=== PATIENT | female | born 1985 | race African-American/Black ===

== ENCOUNTER 2017-07-12 09:20 | Emergency (ER) | payer MEDICAID ==
[~2017-07-12] VITALS: Ht 165.1 cm; Wt 74.4 kg
[~2017-07-12 09:20] MED LIST: GABA-339; HYDR-2616; NAPR500T31
[2017-07-12 09:23] VITALS: BP 155/106
[2017-07-12] MEDS ORDERED: diphenhdrAMINE HCL 50 MG/1 ML VL IM ONE (10:15)
== END 2017-07-12 10:55 | disposition home or self-care (01) ==
LOC: ER 09:20
DX: O23.41 Unspecified infection of urinary tract in pregnancy, first trimester (principal)
CPT/HCPCS: 96372; 99283; J1200

== ENCOUNTER → 2020-09-02 | Outpatient (CLI) | payer SELFPAY ==
[2020-09-02 11:20] LABS: Basophils # (auto) 0 10 ^3/uL (0-0.2); Basophils % (auto) 0.5 % (0.0-2.0); Eosinophils # (auto) 0 10 ^3/uL (0-0.8); Eosinophils % (auto) 0.7 % (0.0-7.0); Hematocrit 38.5 % (36.0-46.0); Hemoglobin 13.2 g/dL (12.2-16.2); Lymphocytes # (auto) 1.7 10 ^3/uL (0.4-5.4); Lymphocytes % (auto) 26.3 % (10.0-50.0); Mean Corpuscular Hemoglobin 33.8 pg (28.0-32.0); Mean Corpuscular Hgb Conc. 34.4 g/dL (32.0-36.0); Mean Corpuscular Volume 98.2 fL (80.0-100.0); Monocytes # (auto) 0.4 10 ^3/uL (0-1.3); Monocytes % (auto) 5.5 % (0.0-12.0); Neutrophils # (auto) 4.4 10 ^3/uL (1.6-8.6); Platelet Count (auto) 250 10^3/uL (140-450); Red Blood Cells 3.92 10^6/uL (4.0-5.20); Red Cell Distribution Width 12.9 % (11.8-14.3); White Blood Cell 6.5 10^3/uL (4.4-10.8)
[2020-09-02 11:33] LABS: Urine Bacteria NONE SEEN /hpf (None Seen); Urine Blood Negative /uL (Negative); Urine Mucus FEW (None Seen); Urine Specific Gravity 1.021 (1.001-1.035); Urine WBC <1 /hpf (0 - 5)
[2020-09-02 11:56] LABS: INR 1.02 (0.9-1.15); Partial Thromboplastin Time 25.5 sec (23.0-31.2)
[2020-09-02 13:10] LABS: Albumin 3.8 g/dL (3.4-5.0); Calcium 8.6 mg/dL (8.5-10.1); Potassium 3.8 mmol/L (3.5-5.1)
[2020-09-02 13:14] LABS: BUN/Creatinine Ratio 13.9; Bilirubin, Total 0.6 mg/dL (0.2-1.0); Total Protein 7.6 g/dL (6.4-8.2)
== END | disposition home or self-care (01) ==
LOC: LAB 11:03
PROVIDERS: ATTEND Internal Medicine
DX: Z01.812 Encounter for preprocedural laboratory examination (principal)
CPT/HCPCS: 36415; 80053; 81001; 84702; 85025; 85610; 85730; 86703

== ENCOUNTER → 2020-09-24 | Outpatient (CLI) | payer SELFPAY | END | disposition home or self-care (01) | LOC: LAB 16:37 | PROVIDERS: ATTEND Internal Medicine | DX: Z20.822 Contact with and (suspected) exposure to COVID-19 (principal) | CPT/HCPCS: C9803; U0003 ==

== ENCOUNTER 2025-02-28 08:29 | Inpatient (IN) | payer MEDICAID, OTHER ==
[~2025-02-28] VITALS: Ht 165.1 cm; Wt 83.8 kg
[~2025-02-28 08:29] MED LIST changes: +NAPR-746; -NAPR500T31
--- NOTE | 2025-02-28 08:53 | ED.PDOC ---
History of Present Illness(SKN HPI Comments A 39-YEAR-OLD FEMALE WHO PRESENTS TO THE ED WITH C/C OF ABSCESS. PATIENT HAS A SHE HAS BEEN HAVING ABSCESS ON THE RIGHT INNER THIGH AREA FOR THE PAST 2 DAYS. PATIENT STATES SINCE HE HAS BEEN HAVING INCREASE URTICARIA REDNESS AND SWELLING RADIATING TO THE RIGHT UPPER INNER THIGH AREA. PATIENT STATES THAT IT IS DUE TO POSSIBLE BITE. THE PAIN LEVEL IS 8/10 AT THIS TIME. PATIENT OTHERWISE HAS NOTED BLOOD PRESSURE OF 127/108 MILD ELEVATION DUE TO THE PAIN. PT DENIES FEVER, SOB, CHEST PAIN, NAUSEA, VOMITING, HEADACHE, DIZZINESS AND OTHER COMPLAINTS. NO OTHER SYMPTOMS REPORTED AT THIS TIME OF CARE. Chief Complaint: Abscess Time Seen by MD: 08:48 Primary Care Provider: [place] History of Present Illness: Nurses Notes, Medications, Allergies Allergies: Coded Allergies: NO KNOWN ALLERGIES (Unverified , 05/27/12) Home Meds Reported Medications [[id number] Mg] (Gabapentin) 600 MG TAB No Conflict Check, MG 01/29/13 [[id number] Mg] (Naproxen) 500 MG TAB No Conflict Check, MG 01/29/13 [Hydrocodone/Ace1 Ta8] (Hydrocodone/Acetaminophen) 1 TAB TAB No Conflict Check, TAB 01/29/13 Information Source: Patient Mode of Arrival: Ambulatory Severity: Moderate Timing: Days Duration: Since onset, Days Prehospital treatment: None Location: Extremities (RIGHT INNER THIGH ) Mechanism: Insect Developed: Other (RED BUMP ON RIGHT INNER THIGH ) Object: None Retained Foreign Body: No Wound Type: Other (CELLULITIS OF RIGHT INNER THIGH ) Tetanus: UTD Associated Signs and Symptoms: Redness, Swelling, Pain Past Medical History PAST MEDICAL HISTORY: Denies Surgical History: BTL, SUCCESS COACH History: No Pertinent SUCCESS COACH History Family History Family History: No family hx of DM Social History Smoker: Non-Smoker Alcohol: Denies ETOH Use, Occasionally Drugs: Denies Drug Use Lives In: Home Constitutional: reports: others (ANXIOUS ); denies: chills, diaphoresis, fatigue, fever, malaise, sweats, weakness EENTM: denies: blurred vision, double vision, ear bleeding, ear discharge, ear drainage, ear pain, ear ringing, eye pain, eye redness, hearing loss, mouth pain, mouth swelling, nasal discharge, nose bleeding, nose congestion, nose pain, photophobia, tearing, throat pain, throat swelling, voice changes, others Respiratory: denies: cough, hemoptysis, orthopnea, SOB at rest, shortness of breath, SOB with excertion, stridor, wheezing, others Cardiovascular: denies: chest pain, dizzy spells, diaphoresis, Dyspnea on exertion, edema, irregular heart beat, left arm pain, lightheadedness, palpitations, PND, syncope, others Gastrointestinal: denies: abdomen distended, abdominal pain, blood streaked bowels, constipated, diarrhea, dysphagia, difficulty swallowing, hematemesis, melena, nausea, poor appetite, poor fluid intake, rectal bleeding, rectal pain, vomiting, others Genitourinary: denies: abnormal vagina bleeding, burning, dyspareunia, dysuria, flank pain, frequency, hematuria, incontinence, pain, , vagina discharge, urgency, others Neurological: denies: dizziness, fainting, headache, left sided numbness, left sided weakness, numbness, paresthesia, pre-existing deficit, right sided numbness, right sided weakness, seizure, speech problems, tingling, tremors, weakness, others Musculoskeletal: denies: back pain, gout, joint pain, joint swelling, muscle pain, muscle stiffness, neck pain, others Integumetry: reports: change in color (R inner thigh), lumps (RIGHT INNER THIGH ); denies: bruises, change in hair/nails, dryness, laceration, lesions, rash, wounds, others Allergic/Immunocompromised: denies: Difficulty Healing, Frequent Infections, Hives, Itching, others Hematologic/Lymphatic: denies: anemia, blood clots, easy bleeding, easy bruising, swollen glands, others Endocrine: denies: excessive hunger, excessive sweating, excessive thirst, excessive urination, flushing, intolerance to cold, intolerance to heat, unexplained weight gain, unexplained weight loss, others Psychiatric: denies: anxiety, bipolar disorder, depression, hopeless, panic disorder, schizophrenia, sleepless, suicidal, others All Other Systems: Reviewed and Negative Physical Exam General Appearance: Moderate Distress, Normal HEENT: Normal ENT Inspection, PERRL/EOMI, Pharynx Normal, TMs Normal Neck: Full Range of Motion, Non-Tender, Normal, Normal Inspection Respiratory: Chest Non-Tender, Lungs Clear, No Accessory Muscle Use, No Respiratory Distress, Normal Breath Sounds Cardiovascular: No Edema, No JVD, No Murmur, No Gallop, Normal Peripheral Pulses, Regular Rate/Rhythm Breast Exam: Deferred Gastrointestinal: No Organomegaly, Non Tender, No Pulsatile Mass, Normal Bowel Sounds, Soft Genitalia: Deferred Pelvic: Deferred Rectal: Deferred Extremities: Decreased range of motion, No calf tenderness, Normal capillary refill, No pedal edema, Swelling (ERYTHEMA AND SWELLING WITH A BUMP ON RIGHT INNER THIGH. ), Tender (AND REDNESS ON RIGHT INNER THIGH, CELLULITIS. ) Musculoskeletal : Apperance: Normal Neurologic: Alert, pollution control technician II-XII nml as Tested, No Motor Deficits, Normal Affect, Normal Mood, No Sensory Deficits Cerebellar Function: Normal Reflexes: Normal Skin: Dry, Normal Color, Warm, Wounds (A BUMP WITH LOCALIZED REDNESS, HARDNESS AND SWELLING ON RIGHT INNER THIGH, +BITE MAYRA, NO PUS DRAINAGE. ) Peripheral Pulses: 2+ carotid (R), 2+ carotid (L), 2+ dorsalis pedis (R), 2+ dorsalis pedis (L) Lymphatic: No Adenopathy Was a procedure done? Was a procedure done?: No Differential Diagnosis (INTG) Differential Diagnosis: Abscess, Cellulitis, Urticaria Abscess: Abscess, Bacteremia, Cellulitis X-Ray, Labs, Meds, VS Vital Signs Date Time Temp Pulse Resp B/P (MAP) Pulse Ox O2 Delivery O2 Flow Rate FiO2 02/28/25 08:30 98.3 89 20 147/108 97 98.3 Lab Test 02/28/25 09:14 02/28/25 09:00 Range/Units White Blood Count 8.4 4.4-10.8 10^3/uL Red Blood Count 3.67 L 4.0-5.20 10^6/uL Hemoglobin 11.7 L 12.2-16.2 g/dL Hematocrit 35.4 L 36.0-46.0 % Mean Corpuscular Volume 96.7 80.0-100.0 fL Mean Corpuscular Hemoglobin 32.0 28.0-32.0 pg Mean Corpuscular Hemoglobin Concent 33.1 32.0-36.0 g/dL Red Cell Distribution Width 13.6 11.8-14.3 % Platelet Count 224 140-450 10^3/uL Mean Platelet Volume 8.5 6.9-10.8 fL Neutrophils (%) (Auto) 70.8 37.0-80.0 % Lymphocytes (%) (Auto) 19.5 10.0-50.0 % Monocytes (%) (Auto) 8.6 0.0-12.0 % Eosinophils (%) (Auto) 0.5 0.0-7.0 % Basophils (%) (Auto) 0.6 0.0-2.0 % Neutrophils # (Auto) 6.0 1.6-8.6 10 ^3/uL Lymphocytes # (Auto) 1.6 0.4-5.4 10 ^3/uL Monocytes # (Auto) 0.7 0-1.3 10 ^3/uL Eosinophils # (Auto) 0 0-0.8 10 ^3/uL Basophils # (Auto) 0 0-0.2 10 ^3/uL Nucleated Red Blood Cells 0.2 % Sodium Level 139 136-145 mmol/L Potassium Level 5.8 *H 3.5-5.1 mmol/L Chloride Level 109 H 98-107 mmol/L Carbon Dioxide Level 22 20-31 mmol/L Anion Gap 8 5-15 Blood Urea Nitrogen 7 L 9-23 mg/dL Creatinine 0.78 0.550-1.02 mg/dL Glomerular Filtration Rate Calc 100 >90 mL/min BUN/Creatinine Ratio 9.0 L 10.0-20.0 Serum Glucose 88 74-106 mg/dL Lactic Acid Level 1.5 0.4-2.0 mmol/L Calcium Level 8.3 L 8.7-10.4 mg/dL Urine Color Light-yellow Yellow Urine Clarity Turbid H Clear Urine pH 6.0 5.0-9.0 Urine Specific [place] 1.015 1.001-1.035 Urine Protein Negative Negative Urine Ketones Negative Negative Urine Blood 2+ H Negative /uL Urine Nitrite Negative Negative Urine Bilirubin Negative Negative Urine Urobilinogen Normal Negative mg/dL Urine Leukocyte Esterase 1+ Negative /uL Urine RBC 7 0 - 4 /hpf Urine Microscopic WBC 3 0-5 /HPF Urine Squamous Epithelial Cells Mod <5 /hpf Urine Bacteria Few H None Seen /hpf Urine Mucus Few None Seen Urine Glucose Normal Normal mg/dL Urine Test Negative Negative Current Medications Medications (Trade) Dose Ordered Sig/Tess Route Start Time Stop Time Status Last Admin Ceftriaxone Sodium 50 ml @ 100 mls/hr ONCE ONCE IV 02/28/25 09:00 02/28/25 09:29 DC 02/28/25 09:19 Ketorolac Tromethamine (Toradol Injection) 30 mg ONCE ONCE IV 02/28/25 09:00 02/28/25 09:01 DC 02/28/25 09:19 Sodium Chloride 1,000 ml @ 125 mls/hr Q8H ONCE IV 02/28/25 09:00 02/28/25 16:59 02/28/25 09:25 X-Ray, Labs, Meds, VS Comment EXTERNAL MEDICAL RECORDS REVIEWED: [NONE] INDEPENDENT HISTORIANS: [NONE] SOCIAL DETERMINANTS OF HEALTH: [NONE] LABS ORDERED: CBC, BMP, BLOOD CULTURE, LACTIC ACID, UA AND REVIEWED AND INTERPRETED RESULTS: IMAGING ORDERED: NONE TREATMENTS ORDERED: ROCEPHIN 1GM IVP, CLINDAMYCIN 900MG IVP, TORADOL 30MG IV AND 0.9 NS 125ML/HOUR PROCEDURES PERFORMED: NONE CRITICAL CARE TIME: NONE I HAVE DISCUSSED THE PATIENT WITH THE ATTENDING PHYSICIAN, DR. VOGEL SHE AGREES WITH THE PATIENT'S PLAN OF CARE AND DISPOSITION. BASED ON HISTORY OF PRESENT ILLNESS AND PHYSICAL EXAM. PATIENT WILL BE ADMITTED TO THE HOSPITAL FOR FURTHER EVALUATION AND TREATMENT. Time of 1ST Reevaluation: 09:30 Reevaluation 1ST: Unchanged Time of 2ND Reevaluation: 10:31 Reevaluation 2ND: Unchanged Patient Education/Counseling: Diagnosis, Treatment Family Education/Counseling: Diagnosis, Treatment SEPSIS Sepsis Screen Date sepsis recognized/suspect: Feb 28, 2025 Time Sepsis recognized/suspect: 830 Recent Procedure: No On Antibiotic Therapy: No Respiratory Rate >20: No Heart Rate >90: Yes Temp<36 C (96.8 F) or >38.3 C: No SBP <90 or MAP <65 mmHG: No New Acute Mental Status Change: No Is the patient on CPAP, BIPAP,: No Physician Orders Blood Culture (02/28/25 08:48) Heplock Iv (02/28/25 ) Sodium Chloride 0.9% (02/28/25 09:00) Vital Signs Date Time Temp Pulse Resp B/P (MAP) Pulse Ox O2 Delivery O2 Flow Rate FiO2 02/28/25 08:30 98.3 89 20 147/108 97 98.3 Laboratory Tests Test 02/28/25 09:14 Lactic Acid Level 1.5 mmol/L (0.4-2.0) White Blood Count 8.4 10^3/uL (4.4-10.8) Medications Medications Dose Ordered Sig/Tess Route Start Time Stop Time Status Last Admin Dose Admin Ceftriaxone Sodium 50 ml @ 100 mls/hr ONCE ONCE IV 02/28/25 09:00 02/28/25 09:29 DC 02/28/25 09:19 Ketorolac Tromethamine 30 mg ONCE ONCE IV 02/28/25 09:00 02/28/25 09:01 DC 02/28/25 09:19 Sodium Chloride 1,000 ml @ 125 mls/hr Q8H ONCE IV 02/28/25 09:00 02/28/25 16:59 02/28/25 09:25 Departure 1 Departure Time of Disposition: 10:31 Impression: Primary Impression: Cellulitis of right thigh Disposition: ADMITTED INPATIENT Condition: Serious Critical Care Note Critical Care Time?: No Stability Stability form required: Yes Unstable for transfer: Requires medication, ED Physician Assesment, Possible rapid decline Heart Score Heart Score: Heart Score Response (Comments) Value History N/A 0 EKG N/A 0 Age N/A 0 Risk Factors N/A 0 Troponin N/A 0 Total 0 I personally scribed for KAIT DODGE ([email or web address]) on 02/28/25 at 08:53. Electronically submitted by Noman Lozoya ([email or web address] Nile). I personally scribed for KAIT DODGE ([email or web address]) on 02/28/25 at 09:32. Electronically submitted by Noman Lozoya ([email or web address]). I personally scribed for KAIT DODGE ([email or web address]) on 02/28/25 at 09:32. Electronically submitted by Noman Lozoya ([email or web address]). KAIT DODGE Feb 28, 2025 08:53
[2025-02-28] MEDS: KETOROLAC TROMETH 30 MG/ML 1ML VIAL IV ONE (09:19)
[2025-02-28] MEDS: SODIUM CHLORIDE 0.9% 1,000 ML IV ONE (09:25)
[2025-02-28 09:27] LABS: Hematocrit 35.4 % (36.0-46.0); Hemoglobin 11.7 g/dL (12.2-16.2); Mean Corpuscular Hemoglobin 32.0 pg (28.0-32.0); Mean Corpuscular Volume 96.7 fL (80.0-100.0); Nucleated Red Blood Cells % 0.2 %
[2025-02-28 09:35] LABS: Sodium 139 mmol/L (136-145)
[2025-02-28 09:36] LABS: Anion Gap 8 (5-15); Carbon Dioxide 22 mmol/L (20-31)
[2025-02-28 09:37] LABS: Urine Protein, UAD Negative (Negative)
[2025-02-28 09:38] LABS: Chloride 109 mmol/L (98-107)
[2025-02-28 09:39] LABS: Calcium 8.3 mg/dL (8.7-10.4)
[2025-02-28 09:41] LABS: Glucose 88 mg/dL (74-106)
[2025-02-28 09:47] LABS: BUN/Creatinine Ratio 9.0 (10.0-20.0); Blood Urea Nitrogen 7 mg/dL (9-23)
[2025-02-28 09:50] LABS: Potassium 5.8 mmol/L (3.5-5.1)
[2025-02-28 10:09] VITALS: PULSE 70; RESP 10; O2SAT 98
[2025-02-28] MEDS ORDERED: MORPHINE SULFATE INJ 2 MG/ml SYRG IV PRN (10:45)
[2025-02-28] MEDS ORDERED: NITROGLYCERIN 0.4 MG SL TAB SL PRN (10:45)
[2025-02-28] MEDS: DEXTROSE (50%) 50ML SYRG IV ONE (10:45)
--- NOTE | 2025-02-28 10:52 | DVHHP2 ---
History of Present Illness Reason for Visit: Right lower extremity erythema History of Present Illness Forrest Burgos is a 39-year-old female with past medical history of bilateral tubal ligation, , and right leg surgery in 2007 with rods and screws who presents to the ED with right lower extremity erythema and pain with pain being 8/10 throbbing and constant. Patient reports that it started on Sunday and she was squeezing and scratching the site because it was itchy. She reports that she never had this before. Upon examination noted that it was her right medial thigh with a single lesion. Patient thinks that it was a bug bite but not sure if it was. She reports that she use Alcohol to rub the site with no relief. Patient denies any recent trauma or injury, recent sick contacts, recent ingestion of spoiled food, recent travels, chest pain, shortness of breath, fever, chills, lightheadedness, weakness, dizziness, abdominal pain, nausea, vomiting, or diarrhea. Past Surgical History: , Other (Right lower extremity leg surgery in 2007 with rods and screws), Tubal Ligation Family History: Cancer, Hypertension, Other (Mom with laryngeal cancer and hypertension.) Smoke: No ALCOHOL: none Drugs: None Lives: with Family Domestic Violence: Neg Review of Systems Skin: Lesions (Single) Allergies: Coded Allergies: NO KNOWN ALLERGIES (Unverified , 05/27/12) Exam Vital Signs Vital Signs Date Time Temp Pulse Resp B/P (MAP) Pulse Ox O2 Delivery O2 Flow Rate FiO2 02/28/25 08:30 98.3 89 20 147/108 97 98.3 General Appearance: Alert, Oriented X3, Cooperative, No acute distress HEENT: Atraumatic, PERRLA, EOMI, Mucous membr. moist/pink Respiratory: Clear to auscultation, Normal air movement Cardiovascular: Regular rate, Normal S1, Normal S2, No murmurs Abdominal: Normal bowel sounds, Soft Extremities: No clubbing, No cyanosis, No edema, Normal pulses Neuro: Normal speech, Strength at 5/5 X4 ext, Normal tone, Sensation intact Psych/Mental Status: Mental status NL, Mood NL Labs/Xrays Labs Test 02/28/25 09:14 02/28/25 09:00 Range/Units White Blood Count 8.4 4.4-10.8 10^3/uL Red Blood Count 3.67 L 4.0-5.20 10^6/uL Hemoglobin 11.7 L 12.2-16.2 g/dL Hematocrit 35.4 L 36.0-46.0 % Mean Corpuscular Volume 96.7 80.0-100.0 fL Mean Corpuscular Hemoglobin 32.0 28.0-32.0 pg Mean Corpuscular Hemoglobin Concent 33.1 32.0-36.0 g/dL Red Cell Distribution Width 13.6 11.8-14.3 % Platelet Count 224 140-450 10^3/uL Mean Platelet Volume 8.5 6.9-10.8 fL Neutrophils (%) (Auto) 70.8 37.0-80.0 % Lymphocytes (%) (Auto) 19.5 10.0-50.0 % Monocytes (%) (Auto) 8.6 0.0-12.0 % Eosinophils (%) (Auto) 0.5 0.0-7.0 % Basophils (%) (Auto) 0.6 0.0-2.0 % Neutrophils # (Auto) 6.0 1.6-8.6 10 ^3/uL Lymphocytes # (Auto) 1.6 0.4-5.4 10 ^3/uL Monocytes # (Auto) 0.7 0-1.3 10 ^3/uL Eosinophils # (Auto) 0 0-0.8 10 ^3/uL Basophils # (Auto) 0 0-0.2 10 ^3/uL Nucleated Red Blood Cells 0.2 % Sodium Level 139 136-145 mmol/L Potassium Level 5.8 *H 3.5-5.1 mmol/L Chloride Level 109 H 98-107 mmol/L Carbon Dioxide Level 22 20-31 mmol/L Anion Gap 8 5-15 Blood Urea Nitrogen 7 L 9-23 mg/dL Creatinine 0.78 0.550-1.02 mg/dL Glomerular Filtration Rate Calc 100 >90 mL/min BUN/Creatinine Ratio 9.0 L 10.0-20.0 Serum Glucose 88 74-106 mg/dL Lactic Acid Level 1.5 0.4-2.0 mmol/L Calcium Level 8.3 L 8.7-10.4 mg/dL Urine Color Light-yellow Yellow Urine Clarity Turbid H Clear Urine pH 6.0 5.0-9.0 Urine Specific [place] 1.015 1.001-1.035 Urine Protein Negative Negative Urine Ketones Negative Negative Urine Blood 2+ H Negative /uL Urine Nitrite Negative Negative Urine Bilirubin Negative Negative Urine Urobilinogen Normal Negative mg/dL Urine Leukocyte Esterase 1+ Negative /uL Urine RBC 7 0 - 4 /hpf Urine Microscopic WBC 3 0-5 /HPF Urine Squamous Epithelial Cells Mod <5 /hpf Urine Bacteria Few H None Seen /hpf Urine Mucus Few None Seen Urine Glucose Normal Normal mg/dL Urine Test Negative Negative INDICATION: r/o abscess COMPARISON: None TECHNIQUE: CT of the right was performed without contrast. Volume transverse images were obtained and reconstructed in multiple planes using bone and soft tissue algorithms. CONTRAST: None Radiation Dose Information: CT Dose: CTDI volume is 25 mGy. Dose-length product is 1437 mGy*cm FINDINGS: Patient is status post ORIF for femoral fracture which is well healed. The alignment is normal. The joint spaces are normal. There is no fracture, dislocation, or focal osseous lesions. The soft tissues are normal. IMPRESSION: No acute disease SEPSIS Sepsis Screen Date sepsis recognized/suspect: Feb 28, 2025 Time Sepsis recognized/suspect: 830 Recent Procedure: No On Antibiotic Therapy: No Respiratory Rate >20: No Heart Rate >90: Yes Temp<36 C (96.8 F) or >38.3 C: No SBP <90 or MAP <65 mmHG: No New Acute Mental Status Change: No Is the patient on CPAP, BIPAP,: No Physician Orders Blood Culture (02/28/25 08:48) Heplock Iv (02/28/25 ) Sodium Chloride 0.9% (02/28/25 09:00) Vital Signs Date Time Temp Pulse Resp B/P (MAP) Pulse Ox O2 Delivery O2 Flow Rate FiO2 02/28/25 08:30 98.3 89 20 147/108 97 98.3 Laboratory Tests Test 02/28/25 09:14 Lactic Acid Level 1.5 mmol/L (0.4-2.0) White Blood Count 8.4 10^3/uL (4.4-10.8) Medications Medications Dose Ordered Sig/Tess Route Start Time Stop Time Status Last Admin Dose Admin Ceftriaxone Sodium 50 ml @ 100 mls/hr ONCE ONCE IV 02/28/25 09:00 02/28/25 09:29 DC 02/28/25 09:19 100 MLS/HR Ketorolac Tromethamine 30 mg ONCE ONCE IV 02/28/25 09:00 02/28/25 09:01 DC 02/28/25 09:19 30 MG Sodium Chloride 1,000 ml @ 125 mls/hr Q8H ONCE IV 02/28/25 09:00 02/28/25 16:59 02/28/25 09:25 125 MLS/HR Assessment/Plan Assessment/Plan Assessment Right lower extremity erythema likely abscess versus cellulitis Hyperkalemia UTI History of bilateral tubal ligation History of History of right leg surgery in 2007 with rods and screws Plan Admit to [facility] Hyperkalemia protocol IV antibiotics-clindamycin + ceftriaxone Wound culture with Gram stain Wound consult HCG noted Lactic noted Blood cultures UA NS 1 L given in ED Antiemetics Pain management ESR CRP Diet Home medications reconciled DVT prophylaxis-SCDs PUD prophylaxis-not indicated history of GERD or GI bleed Discussed plan of care with patient and nurse [id number] Preventive counseling healthy eating habits, physical activity, and regular checkups Primary nurse reported that the lab draw was hemolyzed which resulted in the potassium as being high redraw ordered Plan discussed with: Patient Date of Service: Feb 28, 2025 Billing Provider: JENNIFER CARR Common Visit Codes: [id number] INP/OBS CARE (HIGH) Secondary Visit Codes: [id number] COUNSELING IND JENNIFER CARR Feb 28, 2025 10:52
[2025-02-28] MEDS: ALBUTEROL SULF 2.5 MG/0.5ML(0.5%) NEB SOLN NEB ONE (11:06)
[2025-02-28] MEDS: ALBUTEROL SULF 2.5 MG/0.5ML(0.5%) NEB SOLN ONE (11:06)
[2025-02-28] MEDS: CLINDAMYCIN 900MG IV 50 ML IV ONE (11:21)
--- NOTE | 2025-02-28 11:50 | DVH ---
INDICATION: r/o abscess COMPARISON: None TECHNIQUE: CT of the right was performed without contrast. Volume transverse images were obtained a nd reconstructed in multiple planes using bone and soft tissue algorithms. CONTRAST: None Radiation Dose Information: CT Dose: CTDI volume is 25 mGy. Dose-length product is 1437 mGy*cm FINDINGS: Patient is status post ORIF for femoral fracture which is well healed. The alignment is normal. The joint spaces are normal. There is no fracture, dislocation, or focal osseous lesions. The soft tissues are normal. IMPRESSION: No acute disease 1. All CT scans at this medical facility are performed using dose modulation techniques as appropriat e to a performed exam including the following: Automated exposure control was utilized; adjustment of the MA and/or KV according to patient size; and use of iterative reconstruction technique.
[2025-02-28 12:00] VITALS: BP 147/66; PULSE 80; RESP 18; TEMP 97.2; O2SAT 96
[2025-02-28 12:58] VITALS: BP 127/100; PULSE 80; RESP 18; TEMP 97.2; O2SAT 96
[2025-02-28 15:05] LABS: Chloride 109 mmol/L (98-107); Potassium 3.5 mmol/L (3.5-5.1); Sodium 143 mmol/L (136-145)
[2025-02-28 15:06] LABS: Anion Gap 6 (5-15); Carbon Dioxide 28 mmol/L (20-31)
[2025-02-28] MEDS: InsuLIN REG 1unit/0.01ml Soln (100units/ml) IV ONE (15:06)
[2025-02-28] MEDS: SODIUM BICARB 8.4% 50Meq/50ml SYR INJ IV ONE (15:06)
[2025-02-28 15:07] LABS: Calcium 8.3 mg/dL (8.7-10.4)
[2025-02-28] MEDS: HYDROcodone-ACET 5/325MG TAB PO PRN (15:10)
[2025-02-28] MEDS: CLINDAMYCIN 600MG IV 50 ML IV SCH (15:10)
[2025-02-28 15:11] LABS: BUN/Creatinine Ratio 12.0 (10.0-20.0); Blood Urea Nitrogen 9 mg/dL (9-23); Glucose 112 mg/dL (74-106)
[2025-02-28] MEDS ORDERED: VANCOMYCIN PER PHARMACY 0 MG IV SCH (15:30)
[2025-02-28] MEDS: VANCOMYCIN 1GM/250ML KIT 250 ML IV ONE (16:00)
[2025-02-28 17:00] VITALS: BP 151/106; PULSE 80; RESP 17; TEMP 97.6; O2SAT 98
[2025-02-28 20:00] VITALS: PULSE 85; RESP 18
[2025-02-28 21:00] VITALS: BP 133/56; PULSE 85; RESP 18; TEMP 85; O2SAT 97
[2025-02-28] MEDS: CEFEPIME 1GM/50ML 50 ML IV SCH (21:24)
[2025-02-28] MEDS: diphenhdrAMINE HCL 50 MG/1 ML VL IV PRN (21:48)
[2025-03-01] VITALS (7 sets, daily range): BP systolic 118–143; BP diastolic 83–96; PULSE 61–97; RESP 17–18; TEMP 97.9–99.1; O2SAT 93–100
[2025-03-01] MEDS: VANCOMYCIN 1GM/250ML KIT 250 ML IV SCH (05:09)
[2025-03-01 05:58] LABS: Hematocrit 30.8 % (36.0-46.0); Hemoglobin 10.6 g/dL (12.2-16.2); Mean Corpuscular Hemoglobin 32.8 pg (28.0-32.0); Mean Corpuscular Volume 95.3 fL (80.0-100.0); Nucleated Red Blood Cells % 0.0 %
[2025-03-01 06:08] LABS: Alkaline Phosphatase 64 U/L (46-116); Anion Gap 8 (5-15); BUN/Creatinine Ratio 12.5 (10.0-20.0); Blood Urea Nitrogen 10 mg/dL (9-23); Carbon Dioxide 25 mmol/L (20-31); Glucose 86 mg/dL (74-106); Magnesium 2.1 mg/dL (1.6-2.6); Potassium 3.6 mmol/L (3.5-5.1); Sodium 143 mmol/L (136-145); Total Protein 6.4 g/dL (5.7-8.2)
[2025-03-01 06:09] LABS: Alanine Aminotransferase < 9 U/L (7-40); Albumin 3.6 g/dL (3.2-4.8); Bilirubin, Total 0.4 mg/dL (0.2-1.0); Calcium 8.0 mg/dL (8.7-10.4); Chloride 110 mmol/L (98-107)
--- NOTE | 2025-03-01 12:54 | DVHPN2 ---
Subjective Still complains of swelling and pain in the medial aspect of her right thigh She was admitted because of a boil that has been draining on a anterior medial aspect of the upper thigh She says she had a bug bite a week ago Changes from previous H/P or p: Changes Skin: Lesions (Single) Objective Vitals Vital Signs Date Time Temp Pulse Resp B/P (MAP) Pulse Ox O2 Delivery O2 Flow Rate FiO2 03/01/25 12:49 99.1 67 18 126/83 (97) 100 99.1 03/01/25 08:10 Room Air* 0 21 Intake/Output Intake and Output 03/01/25 07:00 Intake Total 800 ml Balance 800 ml Intake Oral 650 ml IV Total 150 ml # Voids 4 General Appearance: Alert, Oriented X3, Cooperative, No acute distress Cardiovascular: Regular rate, Normal S1, Normal S2, No murmurs Abdomen: Normal bowel sounds, Soft, No tenderness Extremities: No edema Medications Current Medications Medications Dose Ordered Sig/Tess Route Start Time Stop Time Status Last Admin Dose Admin Acetaminophen/ Hydrocodone Bitart 1 tab Q4HP PRN PO 02/28/25 10:45 03/01/25 11:34 1 TAB Ondansetron HCl 4 mg Q4HP PRN IV 02/28/25 10:45 Acetaminophen 650 mg Q6HP PRN PO 02/28/25 10:45 Morphine Sulfate 2 mg Q4HPRN PRN IV 02/28/25 10:45 Nitroglycerin 0.4 mg Q5MINP PRN SL 02/28/25 10:45 Morphine Sulfate 2 mg Q30M PRN IV 02/28/25 10:45 Cefepime HCl 50 ml @ 12.5 mls/hr Q8HR IV 02/28/25 22:00 03/01/25 06:28 12.5 MLS/HR Vancomycin HCl 0 ml @ 0 mls/hr UD IV 02/28/25 15:30 Vancomycin HCl 250 ml @ 250 mls/hr Q12H IV 03/01/25 06:00 03/01/25 05:09 250 MLS/HR Diphenhydramine HCl 25 mg Q4HP PRN IV 02/28/25 21:30 03/01/25 10:24 25 MG Laboratory Results Laboratory Tests 03/01/25 05:15 Chemistry Test 02/28/25 14:46 03/01/25 05:15 Calcium Level 8.3 mg/dL (8.7-10.4) L 8.0 mg/dL (8.7-10.4) L Albumin 3.6 g/dL (3.2-4.8) Magnesium Level 2.1 mg/dL (1.6-2.6) Total Protein 6.4 g/dL (5.7-8.2) LFT Test 03/01/25 05:15 Alanine Aminotransferase (ALT) < 9 U/L (7-40) Alkaline Phosphatase 64 U/L (46-116) Aspartate Amino Transferase (AST) 14 U/L (13-40) Total Bilirubin 0.4 mg/dL (0.2-1.0) Urinalysis Test 02/28/25 09:00 Urine Color Light-yellow (Yellow) Urine Clarity Turbid (Clear) H Urine pH 6.0 (5.0-9.0) Urine Specific [place] 1.015 (1.001-1.035) Urine Protein Negative (Negative) Urine Ketones Negative (Negative) Urine Blood 2+ /uL (Negative) H Urine Nitrite Negative (Negative) Urine Bilirubin Negative (Negative) Urine Urobilinogen Normal mg/dL (Negative) Urine Leukocyte Esterase 1+ /uL (Negative) Urine RBC 7 /hpf (0 - 4) Urine Microscopic WBC 3 /HPF (0-5) Urine Squamous Epithelial Cells Mod /hpf (<5) Urine Bacteria Few /hpf (None Seen) H Urine Mucus Few (None Seen) Urine Glucose Normal mg/dL (Normal) Urine Test Negative (Negative) Microbiology Microbiology Date/Time Source Procedure Growth Status 02/28/25 13:00 Leg Right Gram Stain Pending Resulted 02/28/25 13:00 Leg Right Wound Culture - Preliminary Resulted 02/28/25 09:14 Blood Blood Culture - Preliminary NO GROWTH AFTER 24 HOURS OF INCUBATION. Resulted Assessment/Plan Assessment/Plan Right upper thigh boil versus abscess although negative CT scan for abscess Right upper thigh cellulitis Prior hip surgery Hyperkalemia Plan IV antibiotics with cefepime and vancomycin Wound culture Surgical consult Monitor closely Plan discussed with: Patient My Orders Orders - PETER DAMON MD Procedure Category Date Status Time Cefepime 1gm/50ml PHA 02/28/25 In Process (Maxipime 1gm/50ml) 22:00 Vancomycin Per PHA 02/28/25 In Process Pharmacy 15:30 Vancomycin 1gm/250ml PHA 03/01/25 In Process Kit 06:00 Creatinine LAB 03/02/25 Verified 05:00 Complete Blood Count LAB 03/02/25 Verified 05:00 Vancomycin,Trough LAB 03/02/25 Verified 05:00 Vancomycin Per KYLEIGH 03/02/25 In Process Pharmacy Protoc 05:00 Wound Culture W/ Gs DARYL 03/01/25 In Process 10:26 Date of Service: Mar 01, 2025 Billing Provider: PETER DAMON MD Common Visit Codes: [id number] INP/OBS CARE(HIGH) Secondary Visit Codes: [id number] CARE PLAN 30 MINUTES PETER DAMON MD Mar 01, 2025 12:54
[2025-03-02] VITALS (8 sets, daily range): BP systolic 112–150; BP diastolic 80–103; PULSE 63–82; RESP 17–20; TEMP 97.3–99.7; O2SAT 97–100
[2025-03-02 05:55] LABS: Hematocrit 31.5 % (36.0-46.0); Hemoglobin 11.0 g/dL (12.2-16.2); Mean Corpuscular Hemoglobin 32.9 pg (28.0-32.0); Mean Corpuscular Volume 94.7 fL (80.0-100.0); Nucleated Red Blood Cells % 0.1 %
[2025-03-02] MEDS: MORPHINE SULFATE INJ 2 MG/ml SYRG IV PRN (10:56)
--- NOTE | 2025-03-02 12:52 | DVHPN2 ---
Subjective Still c/o pain and swelling Minimal drainage Changes from previous H/P or p: Changes Skin: Lesions (Single) Objective Vitals Vital Signs Date Time Temp Pulse Resp B/P (MAP) Pulse Ox O2 Delivery O2 Flow Rate FiO2 03/02/25 11:26 80 18 150/103 03/02/25 09:00 98.3 100 98.3 03/01/25 20:00 Room Air* 0 21 Intake/Output Intake and Output 03/02/25 07:00 Intake Total 1550 ml Balance 1550 ml Intake Oral 1150 ml IV Total 400 ml # Voids 6 General Appearance: Alert, Oriented X3, Cooperative, No acute distress Cardiovascular: Regular rate, Normal S1, Normal S2, No murmurs Abdomen: Normal bowel sounds, Soft, No tenderness Extremities: No edema Medications Current Medications Medications Dose Ordered Sig/Tess Route Start Time Stop Time Status Last Admin Dose Admin Acetaminophen/ Hydrocodone Bitart 1 tab Q4HP PRN PO 02/28/25 10:45 03/02/25 06:49 1 TAB Ondansetron HCl 4 mg Q4HP PRN IV 02/28/25 10:45 Acetaminophen 650 mg Q6HP PRN PO 02/28/25 10:45 Morphine Sulfate 2 mg Q4HPRN PRN IV 02/28/25 10:45 03/02/25 10:56 2 MG Nitroglycerin 0.4 mg Q5MINP PRN SL 02/28/25 10:45 Morphine Sulfate 2 mg Q30M PRN IV 02/28/25 10:45 Cefepime HCl 50 ml @ 12.5 mls/hr Q8HR IV 02/28/25 22:00 03/02/25 06:54 12.5 MLS/HR Vancomycin HCl 0 ml @ 0 mls/hr UD IV 02/28/25 15:30 Vancomycin HCl 250 ml @ 250 mls/hr Q12H IV 03/01/25 06:00 03/02/25 05:29 250 MLS/HR Diphenhydramine HCl 25 mg Q4HP PRN IV 02/28/25 21:30 03/02/25 11:51 25 MG Laboratory Results Laboratory Tests 03/01/25 05:15 03/02/25 05:08 Urinalysis Test 02/28/25 09:00 Urine Color Light-yellow (Yellow) Urine Clarity Turbid (Clear) H Urine pH 6.0 (5.0-9.0) Urine Specific [place] 1.015 (1.001-1.035) Urine Protein Negative (Negative) Urine Ketones Negative (Negative) Urine Blood 2+ /uL (Negative) H Urine Nitrite Negative (Negative) Urine Bilirubin Negative (Negative) Urine Urobilinogen Normal mg/dL (Negative) Urine Leukocyte Esterase 1+ /uL (Negative) Urine RBC 7 /hpf (0 - 4) Urine Microscopic WBC 3 /HPF (0-5) Urine Squamous Epithelial Cells Mod /hpf (<5) Urine Bacteria Few /hpf (None Seen) H Urine Mucus Few (None Seen) Urine Glucose Normal mg/dL (Normal) Urine Test Negative (Negative) Microbiology Microbiology Date/Time Source Procedure Growth Status 03/01/25 10:23 Thigh Gram Stain Pending Resulted 03/01/25 10:23 Thigh Wound Culture - Preliminary Resulted 02/28/25 09:14 Blood Blood Culture - Preliminary NO GROWTH AFTER 48 HOURS OF INCUBATION. Resulted Assessment/Plan Assessment/Plan Right upper thigh boil versus abscess although negative CT scan for abscess Right upper thigh cellulitis Prior hip surgery Hyperkalemia Plan IV antibiotics with cefepime and vancomycin Wound culture Surgical consult Monitor closely 03/02/25: Cx: MRSA Consult Surgery Dr. Lo Cefepime and Vanco Plan discussed with: Patient My Orders Orders - PETER DAMON MD Procedure Category Date Status Time * Surgical Consult CONS 03/02/25 Transmitted Date of Service: Mar 02, 2025 Billing Provider: PETER DAMON MD Common Visit Codes: [id number] INP/OBS CARE(HIGH) PETER DAMON MD Mar 02, 2025 12:52
--- NOTE | 2025-03-02 15:16 | DVHINCON2 ---
Date of service: Mar 02, 2025 Family History: Alcoholism Family history: Cardiovascular disease Family history: Depression (situation) Family history: Diabetes mellitus Family history: Hypertension Ischemic heart disease No Family History of: Cancer Cancer of colon Chronic obstructive lung disease (situation) Family history: Alzheimer's disease Family history: Arthritis Family history: Asthma Family history: Autoimmune disease (situation) Family history: Blood disorder Family history: Congenital anomaly Family history: Coronary thrombosis Family history: Diabetes in Family history: Glaucoma Family history: Hypercholesterolemia (situation) Family history: Osteoporosis Family history: Suicide (situation) Family history: Thyroid disorder Malignant melanoma Malignant neoplasm of breast Malignant neoplasm of lung Malignant neoplasm of ovary Prostate cancer Renal stone Seizure disorder (situation) Stroke Allergies: Coded Allergies: Ibuprofen (Verified Allergy, Unknown, 02/28/25) Penicillins (Verified Allergy, Unknown, 02/28/25) Tramadol (Verified Allergy, Unknown, 02/28/25) Home Meds Reported Medications [[id number] Mg] (Gabapentin) 600 MG TAB No Conflict Check, MG 01/29/13 [[id number] Mg] (Naproxen) 500 MG TAB No Conflict Check, MG 01/29/13 [Hydrocodone/Ace1 Ta8] (Hydrocodone/Acetaminophen) 1 TAB TAB No Conflict Check, TAB 01/29/13 Current Medications Current Medications Medications (Trade) Dose Ordered Sig/Tess Route PRN Reason Start Time Stop Time Status Last Admin Vancomycin HCl 250 ml @ 250 mls/hr Q8H IV 03/02/25 15:00 UNV Vital Signs Vital Signs Date Time Temp Pulse Resp B/P (MAP) Pulse Ox O2 Delivery O2 Flow Rate FiO2 03/02/25 13:00 97.3 74 20 150/103 (119) 100 97.3 03/02/25 08:00 Room Air* 0 21 Labs/Diagnostic Data Labs Test 03/02/25 05:08 03/01/25 05:15 02/28/25 14:46 02/28/25 09:14 Range/Units White Blood Count 5.6 4.4-10.8 10^3/uL Red Blood Count 3.33 L 4.0-5.20 10^6/uL Hemoglobin 11.0 L 12.2-16.2 g/dL Hematocrit 31.5 L 36.0-46.0 % Mean Corpuscular Volume 94.7 80.0-100.0 fL Mean Corpuscular Hemoglobin 32.9 H 28.0-32.0 pg Mean Corpuscular Hemoglobin Concent 34.8 32.0-36.0 g/dL Red Cell Distribution Width 13.0 11.8-14.3 % Platelet Count 233 140-450 10^3/uL Mean Platelet Volume 8.5 6.9-10.8 fL Neutrophils (%) (Auto) 56.9 37.0-80.0 % Lymphocytes (%) (Auto) 32.0 10.0-50.0 % Monocytes (%) (Auto) 8.6 0.0-12.0 % Eosinophils (%) (Auto) 1.8 0.0-7.0 % Basophils (%) (Auto) 0.7 0.0-2.0 % Neutrophils # (Auto) 3.2 1.6-8.6 10 ^3/uL Lymphocytes # (Auto) 1.8 0.4-5.4 10 ^3/uL Monocytes # (Auto) 0.5 0-1.3 10 ^3/uL Eosinophils # (Auto) 0.1 0-0.8 10 ^3/uL Basophils # (Auto) 0 0-0.2 10 ^3/uL Nucleated Red Blood Cells 0.1 % Creatinine 0.87 0.550-1.02 mg/dL Glomerular Filtration Rate Calc 87 >90 mL/min Vancomycin Level Trough 8.0 5-10 ug/mL Sodium Level 143 136-145 mmol/L Potassium Level 3.6 3.5-5.1 mmol/L Chloride Level 110 H 98-107 mmol/L Carbon Dioxide Level 25 20-31 mmol/L Anion Gap 8 5-15 Blood Urea Nitrogen 10 9-23 mg/dL BUN/Creatinine Ratio 12.5 10.0-20.0 Serum Glucose 86 74-106 mg/dL Calcium Level 8.0 L 8.7-10.4 mg/dL Magnesium Level 2.1 1.6-2.6 mg/dL Total Bilirubin 0.4 0.2-1.0 mg/dL Aspartate Amino Transferase (AST) 14 13-40 U/L Alanine Aminotransferase (ALT) < 9 7-40 U/L Alkaline Phosphatase 64 46-116 U/L Total Protein 6.4 5.7-8.2 g/dL Albumin 3.6 3.2-4.8 g/dL Erythrocyte Sedimentation Rate 31 H 0-20 mm/hr Lactic Acid Level 1.5 0.4-2.0 mmol/L C-Reactive Protein High Sensitivity 4.67 H <1.0 mg/dL Test 02/28/25 09:00 Range/Units Urine Color Light-yellow Yellow Urine Clarity Turbid H Clear Urine pH 6.0 5.0-9.0 Urine Specific [place] 1.015 1.001-1.035 Urine Protein Negative Negative Urine Ketones Negative Negative Urine Blood 2+ H Negative /uL Urine Nitrite Negative Negative Urine Bilirubin Negative Negative Urine Urobilinogen Normal Negative mg/dL Urine Leukocyte Esterase 1+ Negative /uL Urine RBC 7 0 - 4 /hpf Urine Microscopic WBC 3 0-5 /HPF Urine Squamous Epithelial Cells Mod <5 /hpf Urine Bacteria Few H None Seen /hpf Urine Mucus Few None Seen Urine Glucose Normal Normal mg/dL Urine Test Negative Negative Microbiology Date/Time Source Procedure Growth Status 03/01/25 10:23 Thigh Gram Stain - Final Resulted 03/01/25 10:23 Thigh Wound Culture - Preliminary Resulted 02/28/25 09:14 Blood Blood Culture - Preliminary NO GROWTH AFTER 48 HOURS OF INCUBATION. Resulted Assessment [id number] R THIGH CELLULITIS /ABSCESS CONSIDER EMERGENT SURGERY FOR I/D R THIGH ABSCESS Plan discussed with: Patient MEHNAZ PALAFOX MD Mar 02, 2025 15:16
--- NOTE | 2025-03-02 15:23 | DVHINCON2 ---
DATE OF CONSULTATION: 03/02/2025 HISTORY OF PRESENT ILLNESS: This patient is 39 years old coming in with tenderness and swelling in the right upper leg and she had erythema and pain in that location for a few days and then she got admitted, got antibiotics, and the redness resolved but the swelling is maintained and an abscess was suspected. I was asked to see her regarding the management of that. No trauma was described. No nausea or vomiting. No constipation or diarrhea. No hematemesis or melena. No bleeding per rectum. PAST MEDICAL HISTORY: No diabetes or hypertension. PAST SURGICAL HISTORY: She has had lower extremity on the right side orthopedic surgery, tubal ligation, and . PHYSICAL EXAMINATION: VITAL SIGNS: Afebrile. Stable signs. HEENT: No evidence of pallor, cyanosis, or jaundice. NECK: Supple and nontender with no thyromegaly or lymphadenopathy. CHEST AND LUNGS: Clear. HEART: Within normal limits. ABDOMEN: Soft. NEUROLOGICAL: Not assessed. EXTREMITIES: Examination reveals a possibility of a right upper inner thigh infected cyst/abscess. The plan would be to do incision and drainage of this abscess on the right leg. Benefits and risks discussed and a consent obtained. MD DANNY Bernard/BRITANY TID: [id number] RECEIPT: [id number] cc: Judson Ríos MD
[2025-03-02] MEDS: VANCOMYCIN 1GM/250ML KIT 250 ML IV SCH (19:02)
[2025-03-02 20:39] LABS: INR 0.99 (0.9-1.15); Partial Thromboplastin Time 26.2 SEC (24.5-34.5); Prothrombin Time 10.5 sec (9.3-11.8)
[2025-03-03] VITALS (11 sets, daily range): BP systolic 119–144; BP diastolic 78–105; PULSE 69–90; RESP 12–18; TEMP 97–98.7; O2SAT 95–100
[2025-03-03] MEDS ORDERED: HYDROmorphone HCL 2 MG/ML VL/or syr ONE (08:43)
[2025-03-03] MEDS ORDERED: MIDAZOLAM HCL 2MG/2ML 2ml VIAL (1mg/ml) ONE (08:43)
[2025-03-03] MEDS ORDERED: fentaNYL CITRATE 100 MCG/2 ML VL ONE (08:43)
[2025-03-03] MEDS ORDERED: LIDOCAINE 2%HCL (LOCAL ANESTH.) INJ 20ML MDV ONE (08:44)
[2025-03-03] MEDS ORDERED: ONDANSETRON HCL 4 MG/2 ML VIAL ONE (08:44)
[2025-03-03] MEDS ORDERED: GLYCOPYRROLATE 0.2 MG/ML 1ML VIAL ONE (08:44)
[2025-03-03] MEDS ORDERED: HYDROCORTISONE SOD SUCC 100 MG/2ML INJ VIAL ONE (08:44)
[2025-03-03] MEDS: LIDOCAINE 1% HCL (LOCAL ANESTH.) INJ 20ML MDV ONE (09:08)
--- NOTE | 2025-03-03 09:16 | DVHPN2 ---
Subjective Scheduled for surgery today Changes from previous H/P or p: Changes Skin: Lesions (Single) Objective Vitals Vital Signs Date Time Temp Pulse Resp B/P (MAP) Pulse Ox O2 Delivery O2 Flow Rate FiO2 03/03/25 08:00 73 100 Room Air* 0 21 03/03/25 05:00 98.4 18 119/82 (94) 98.4 Intake/Output Intake and Output 03/03/25 07:00 Intake Total 1060 ml Balance 1060 ml Intake Oral 760 ml IV Total 300 ml # Voids 2 General Appearance: Alert, Oriented X3, Cooperative, No acute distress Cardiovascular: Regular rate, Normal S1, Normal S2, No murmurs Abdomen: Normal bowel sounds, Soft, No tenderness Extremities: No edema Medications Current Medications Medications Dose Ordered Sig/Tess Route Start Time Stop Time Status Last Admin Dose Admin Acetaminophen/ Hydrocodone Bitart 1 tab Q4HP PRN PO 02/28/25 10:45 03/02/25 06:49 1 TAB Ondansetron HCl 4 mg Q4HP PRN IV 02/28/25 10:45 Acetaminophen 650 mg Q6HP PRN PO 02/28/25 10:45 Morphine Sulfate 2 mg Q4HPRN PRN IV 02/28/25 10:45 03/02/25 22:08 2 MG Nitroglycerin 0.4 mg Q5MINP PRN SL 02/28/25 10:45 Morphine Sulfate 2 mg Q30M PRN IV 02/28/25 10:45 Cefepime HCl 50 ml @ 12.5 mls/hr Q8HR IV 02/28/25 22:00 03/03/25 05:41 12.5 MLS/HR Vancomycin HCl 0 ml @ 0 mls/hr UD IV 02/28/25 15:30 Diphenhydramine HCl 25 mg Q4HP PRN IV 02/28/25 21:30 03/03/25 02:08 25 MG Vancomycin HCl 250 ml @ 250 mls/hr Q8H IV 03/02/25 17:00 03/03/25 01:26 250 MLS/HR Laboratory Results Laboratory Tests 03/01/25 05:15 03/02/25 05:08 03/03/25 05:40 Coagulation Test 03/02/25 19:35 Prothrombin Time 10.5 sec (9.3-11.8) Prothrombin Time INR 0.99 (0.9-1.15) Activated Partial Thromboplast Time 26.2 SEC (24.5-34.5) Urinalysis Test 02/28/25 09:00 Urine Color Light-yellow (Yellow) Urine Clarity Turbid (Clear) H Urine pH 6.0 (5.0-9.0) Urine Specific [place] 1.015 (1.001-1.035) Urine Protein Negative (Negative) Urine Ketones Negative (Negative) Urine Blood 2+ /uL (Negative) H Urine Nitrite Negative (Negative) Urine Bilirubin Negative (Negative) Urine Urobilinogen Normal mg/dL (Negative) Urine Leukocyte Esterase 1+ /uL (Negative) Urine RBC 7 /hpf (0 - 4) Urine Microscopic WBC 3 /HPF (0-5) Urine Squamous Epithelial Cells Mod /hpf (<5) Urine Bacteria Few /hpf (None Seen) H Urine Mucus Few (None Seen) Urine Glucose Normal mg/dL (Normal) Urine Test Negative (Negative) Microbiology Microbiology Date/Time Source Procedure Growth Status 03/01/25 10:23 Thigh Gram Stain - Final Resulted 03/01/25 10:23 Thigh Wound Culture - Preliminary Resulted 02/28/25 09:14 Blood Blood Culture - Preliminary NO GROWTH AFTER 48 HOURS OF INCUBATION. Resulted Assessment/Plan Assessment/Plan Right upper thigh boil versus abscess although negative CT scan for abscess Right upper thigh cellulitis Prior hip surgery Hyperkalemia Plan IV antibiotics with cefepime and vancomycin Wound culture Surgical consult Monitor closely 03/02/25: Cx: MRSA Consult Surgery Dr. Lo Cefepime and Vanco 03/03/2025: Surgery for I&D of the abscess today Continue IV antibiotics Monitor closely Plan discussed with: Patient My Orders Orders - PETER DAMON MD Procedure Category Date Status Time * Surgical Consult CONS 03/02/25 Transmitted Vancomycin 1gm/250ml PHA 03/02/25 In Process Kit 17:00 Vancomycin,Trough LAB 03/03/25 Logged 16:00 Vancomycin Per KYLEIGH 03/02/25 In Process Pharmacy Protoc 16:16 Date of Service: Mar 03, 2025 Billing Provider: PETER DAMON MD Common Visit Codes: [id number] INP/OBS CARE(HIGH) PETER DAMON MD Mar 03, 2025 09:16
--- NOTE | 2025-03-03 09:43 | DVHOP2 ---
Operative Report [id number] R UPPER INNER THIGH RESIDUAL ABSCESS/INFECTED CYST INCISION AND DRAINAGE ABOVE AND EXCISION OF INFECTED CYST EBL 5 CC ONE DRAIN NO COMPLICATIONS STABLE TRANSFER TO RECOVERY ROOM MEHNAZ PALAFOX MD Mar 03, 2025 09:43
--- NOTE | 2025-03-03 09:52 | DVHOP ---
DATE OF SURGERY: 03/03/2025 PREOPERATIVE DIAGNOSIS: Right upper inner thigh abscess/infected cyst. POSTOPERATIVE DIAGNOSIS: Right upper inner thigh abscess/infected cyst. PROCEDURE: Incision and drainage of the right upper thigh abscess and excision of the infected cyst. SURGEON: Gene Lo MD EARLY CHILDHOOD TEACHER: None. ANESTHESIA: General. BLOOD LOSS: Close to 3-5 mL. DRAINS: One drain was used. COMPLICATIONS: No complications were encountered. DESCRIPTION OF PROCEDURE: The patient was prepped and draped in the usual sterile fashion in the supine position. The right inner thigh area exposed where the lesion was located and there was not much drainage to be done and most of it was inflamed tissue presumably secondary to an infected cyst and decision was made to do an elliptical incision all around this open wound and was taken out to the deeper tissues using sharp and Bovie dissection and the area was completely taken out with clean gross margins, submitted for pathology. Area was secured for hemostasis. Irrigation performed and 0.25-inch [place] drain was placed to drain the subcutaneous tissues and the tissues were brought together using Vicryl suture for the subcutaneous tissues and 3-0 Monocryl suture for skin closure in subcuticular fashion. Surgical glue was applied. Steri-Strips were applied and a dressing was applied for the drain site. The drain was secured with a silk suture as well. The patient tolerated procedure well and was taken back to the recovery room in a stable condition. MD DANNY Bernard/BRITANY TID: [id number] RECEIPT: [id number] cc: Judson Ríos MD
[2025-03-03] MEDS: ONDANSETRON HCL 4 MG/2 ML VIAL IV PRN ×2 (10:06→13:52)
[2025-03-03] MEDS: ACETAMINOPHEN IV 1000 MG/100ML (10MG/ML) IV ONE (10:06)
[2025-03-03] MEDS: ACETAMINOPHEN IV 100 ML IV ONE (10:09)
[2025-03-03] MEDS: HYDROmorphone HCL 2 MG/ML VL/or syr ONE (10:09)
[2025-03-03] MEDS: ONDANSETRON HCL 4 MG/2 ML VIAL ONE (10:09)
[2025-03-03] MEDS: HYDROmorphone HCL 2 MG/ML VL/or syr IV PRN (10:09)
[2025-03-03] MEDS ORDERED: fentaNYL CITRATE 100 MCG/2 ML VL IV PRN (11:00)
[2025-03-03] MEDS: FAMOTIDINE (10MG/ML) 2ML VL IV ONE ×2 (11:17→11:21)
[2025-03-03] MEDS: diphenhdrAMINE HCL 50 MG/1 ML VL IV PRN (11:33)
--- NOTE | 2025-03-03 12:07 | MEDREC ---
[facility] ASP Intervention Section I [facility] ASP Intervention: Deescalate AB based on CS (Please consider d/c cefepime based on wound culture) TELMA STARR [facility] RESIDENT Mar 03, 2025 12:07
[2025-03-03] MEDS: VANCOMYCIN 1GM/250ML KIT 250 ML IV SCH (18:26)
[2025-03-04] VITALS (8 sets, daily range): BP systolic 126–155; BP diastolic 77–101; PULSE 63–88; RESP 16–18; TEMP 98.1–99; O2SAT 95–100
[2025-03-04 07:28] LABS: Chloride 104 mmol/L (98-107); Sodium 141 mmol/L (136-145)
[2025-03-04 07:29] LABS: Anion Gap 9 (5-15); Carbon Dioxide 28 mmol/L (20-31)
[2025-03-04 07:34] LABS: BUN/Creatinine Ratio 8.9 (10.0-20.0); Glucose 77 mg/dL (74-106)
[2025-03-04 07:35] LABS: Magnesium 1.8 mg/dL (1.6-2.6)
[2025-03-04 07:38] LABS: Blood Urea Nitrogen 8 mg/dL (9-23); Calcium 8.5 mg/dL (8.7-10.4); Potassium 3.4 mmol/L (3.5-5.1)
[2025-03-04] MEDS: POTASSIUM CHL 20 Meq TABLET PO ONE (09:25)
[2025-03-04] MEDS: MAGNESIUM SULFATE 1GM/100ML 100 ML IV SCH (09:25)
--- NOTE | 2025-03-04 09:39 | DVHPN2 ---
Subjective Complains of anxiety Status post I and D of the abscess yesterday Changes from previous H/P or p: Changes Skin: Lesions (Single) Objective Vitals Vital Signs Date Time Temp Pulse Resp B/P (MAP) Pulse Ox O2 Delivery O2 Flow Rate FiO2 03/04/25 08:52 99.0 83 18 126/90 (102) 98 99.0 03/03/25 20:00 Room Air* 0 21 Intake/Output Intake and Output 03/04/25 06:59 Intake Total 1141 ml Output Total 1600 ml Balance -459 ml Intake Oral 591 ml IV Total 550 ml Output Urine Total 1600 ml Drainage Total 0 ml # Voids 3 General Appearance: Alert, Oriented X3, Cooperative, No acute distress Cardiovascular: Regular rate, Normal S1, Normal S2, No murmurs Abdomen: Normal bowel sounds, Soft, No tenderness Extremities: No edema Medications Current Medications Medications Dose Ordered Sig/Tess Route Start Time Stop Time Status Last Admin Dose Admin Acetaminophen/ Hydrocodone Bitart 1 tab Q4HP PRN PO 02/28/25 10:45 03/03/25 20:41 1 TAB Ondansetron HCl 4 mg Q4HP PRN IV 02/28/25 10:45 03/03/25 13:52 4 MG Acetaminophen 650 mg Q6HP PRN PO 02/28/25 10:45 Morphine Sulfate 2 mg Q4HPRN PRN IV 02/28/25 10:45 03/04/25 08:42 2 MG Nitroglycerin 0.4 mg Q5MINP PRN SL 02/28/25 10:45 Morphine Sulfate 2 mg Q30M PRN IV 02/28/25 10:45 Cefepime HCl 50 ml @ 12.5 mls/hr Q8HR IV 02/28/25 22:00 03/04/25 05:20 12.5 MLS/HR Vancomycin HCl 0 ml @ 0 mls/hr UD IV 02/28/25 15:30 Diphenhydramine HCl 25 mg Q4HP PRN IV 02/28/25 21:30 03/03/25 17:49 25 MG Oxycodone HCl 5 mg ONCE PRN PO 03/03/25 11:00 03/03/25 10:54 5 MG Vancomycin HCl 250 ml @ 250 mls/hr Q8H IV 03/03/25 19:00 03/04/25 02:47 250 MLS/HR Magnesium Sulfate/ Dextrose 100 ml @ 100 mls/hr Q1HR IV 03/04/25 09:00 03/04/25 10:59 03/04/25 09:25 100 MLS/HR Laboratory Results Laboratory Tests 03/02/25 05:08 03/04/25 05:40 Chemistry Test 03/04/25 05:40 Calcium Level 8.5 mg/dL (8.7-10.4) L Magnesium Level 1.8 mg/dL (1.6-2.6) Urinalysis Test 02/28/25 09:00 Urine Color Light-yellow (Yellow) Urine Clarity Turbid (Clear) H Urine pH 6.0 (5.0-9.0) Urine Specific [place] 1.015 (1.001-1.035) Urine Protein Negative (Negative) Urine Ketones Negative (Negative) Urine Blood 2+ /uL (Negative) H Urine Nitrite Negative (Negative) Urine Bilirubin Negative (Negative) Urine Urobilinogen Normal mg/dL (Negative) Urine Leukocyte Esterase 1+ /uL (Negative) Urine RBC 7 /hpf (0 - 4) Urine Microscopic WBC 3 /HPF (0-5) Urine Squamous Epithelial Cells Mod /hpf (<5) Urine Bacteria Few /hpf (None Seen) H Urine Mucus Few (None Seen) Urine Glucose Normal mg/dL (Normal) Urine Test Negative (Negative) Microbiology Microbiology Date/Time Source Procedure Growth Status 03/01/25 10:23 Thigh Gram Stain - Final Complete 03/01/25 10:23 Wound Culture - Final Methicillin Resistant S.aureus Complete 02/28/25 09:14 Blood Blood Culture - Preliminary NO GROWTH AFTER 72 HOURS OF INCUBATION. Resulted Assessment/Plan Assessment/Plan Right upper thigh boil versus abscess although negative CT scan for abscess Right upper thigh cellulitis Prior hip surgery Hyperkalemia Plan IV antibiotics with cefepime and vancomycin Wound culture Surgical consult Monitor closely 03/02/25: Cx: MRSA Consult Surgery Dr. Lo Cefepime and Vanco 03/03/2025: Surgery for I&D of the abscess today Continue IV antibiotics Monitor closely 03/04/2025: Continue IV antibiotics Anxiety: Add Xanax Pain management Monitor closely Hypokalemia Hypomagnesemia Replace potassium and magnesium Plan discussed with: Patient My Orders Orders - PETER DAMON MD Procedure Category Date Status Time Vancomycin,Trough LAB 03/04/25 Logged 18:00 Vancomycin Per KYLEIGH 03/03/25 In Process Pharmacy Protoc 16:45 Vancomycin 1gm/250ml PHA 03/03/25 In Process Kit 19:00 Magnesium Sulfate PHA 03/04/25 In Process 1gm/100ml 09:00 Date of Service: Mar 04, 2025 Billing Provider: PETER DAMON MD Common Visit Codes: [id number] INP/OBS CARE(HIGH) PETER DAMON MD Mar 04, 2025 09:39
[2025-03-04] MEDS: ALPRAZolam 0.5 MG TAB PO PRN (11:48)
[2025-03-04] MEDS: POTASSIUM CHL 20MEQ/100ML 100 ML IV ONE (12:30)
[2025-03-04] MEDS: ACETAMINOPHEN 325 MG TAB PO PRN (17:24)
[2025-03-05] VITALS (7 sets, daily range): BP systolic 132–159; BP diastolic 84–96; PULSE 73–95; RESP 16–18; TEMP 98.1–98.7; O2SAT 96–99
[2025-03-05 07:25] LABS: Anion Gap 7 (5-15); Carbon Dioxide 27 mmol/L (20-31); Potassium 4.0 mmol/L (3.5-5.1); Sodium 142 mmol/L (136-145)
[2025-03-05 07:31] LABS: BUN/Creatinine Ratio 11.4 (10.0-20.0); Blood Urea Nitrogen 10 mg/dL (9-23); Glucose 95 mg/dL (74-106)
[2025-03-05 07:32] LABS: Calcium 8.6 mg/dL (8.7-10.4); Chloride 108 mmol/L (98-107); Magnesium 2.1 mg/dL (1.6-2.6)
[2025-03-05] MEDS: VANCOMYCIN 1GM/250ML KIT 250 ML IV SCH (11:00)
[2025-03-05] MEDS ORDERED: DOXY1CAP57 PO (15:58)
[2025-03-05] MEDS ORDERED: HYDR-4902 PO (15:58)
--- NOTE | 2025-03-05 16:04 | DVHDS2 ---
Discharge Summary Date of Admission Feb 28, 2025 at 10:43 Date of Discharge: Mar 05, 2025 Labs/Diagnostic Data: Laboratory Results Test 03/05/25 06:56 03/04/25 18:04 03/02/25 19:35 03/02/25 05:08 Sodium Level 142 mmol/L (136-145) Potassium Level 4.0 mmol/L (3.5-5.1) Chloride Level 108 mmol/L (98-107) Carbon Dioxide Level 27 mmol/L (20-31) Anion Gap 7 (5-15) Blood Urea Nitrogen 10 mg/dL (9-23) Creatinine 0.88 mg/dL (0.550-1.02) Glomerular Filtration Rate Calc 86 mL/min (>90) BUN/Creatinine Ratio 11.4 (10.0-20.0) Serum Glucose 95 mg/dL (74-106) Calcium Level 8.6 mg/dL (8.7-10.4) Magnesium Level 2.1 mg/dL (1.6-2.6) Random Vancomycin Level 6.0 ug/mL (5-10) Vancomycin Level Trough 26.4 ug/mL (5-10) Prothrombin Time 10.5 sec (9.3-11.8) Prothrombin Time INR 0.99 (0.9-1.15) Activated Partial Thromboplast Time 26.2 SEC (24.5-34.5) White Blood Count 5.6 10^3/uL (4.4-10.8) Red Blood Count 3.33 10^6/uL (4.0-5.20) Hemoglobin 11.0 g/dL (12.2-16.2) Hematocrit 31.5 % (36.0-46.0) Mean Corpuscular Volume 94.7 fL (80.0-100.0) Mean Corpuscular Hemoglobin 32.9 pg (28.0-32.0) Mean Corpuscular Hemoglobin Concent 34.8 g/dL (32.0-36.0) Red Cell Distribution Width 13.0 % (11.8-14.3) Platelet Count 233 10^3/uL (140-450) Mean Platelet Volume 8.5 fL (6.9-10.8) Neutrophils (%) (Auto) 56.9 % (37.0-80.0) Lymphocytes (%) (Auto) 32.0 % (10.0-50.0) Monocytes (%) (Auto) 8.6 % (0.0-12.0) Eosinophils (%) (Auto) 1.8 % (0.0-7.0) Basophils (%) (Auto) 0.7 % (0.0-2.0) Neutrophils # (Auto) 3.2 10 ^3/uL (1.6-8.6) Lymphocytes # (Auto) 1.8 10 ^3/uL (0.4-5.4) Monocytes # (Auto) 0.5 10 ^3/uL (0-1.3) Eosinophils # (Auto) 0.1 10 ^3/uL (0-0.8) Basophils # (Auto) 0 10 ^3/uL (0-0.2) Nucleated Red Blood Cells 0.1 % Test 03/01/25 05:15 02/28/25 14:46 02/28/25 09:14 02/28/25 09:00 Total Bilirubin 0.4 mg/dL (0.2-1.0) Aspartate Amino Transferase (AST) 14 U/L (13-40) Alanine Aminotransferase (ALT) < 9 U/L (7-40) Alkaline Phosphatase 64 U/L (46-116) Total Protein 6.4 g/dL (5.7-8.2) Albumin 3.6 g/dL (3.2-4.8) Erythrocyte Sedimentation Rate 31 mm/hr (0-20) Lactic Acid Level 1.5 mmol/L (0.4-2.0) C-Reactive Protein High Sensitivity 4.67 mg/dL (<1.0) Urine Color Light-yellow (Yellow) Urine Clarity Turbid (Clear) Urine pH 6.0 (5.0-9.0) Urine Specific [place] 1.015 (1.001-1.035) Urine Protein Negative (Negative) Urine Ketones Negative (Negative) Urine Blood 2+ /uL (Negative) Urine Nitrite Negative (Negative) Urine Bilirubin Negative (Negative) Urine Urobilinogen Normal mg/dL (Negative) Urine Leukocyte Esterase 1+ /uL (Negative) Urine RBC 7 /hpf (0 - 4) Urine Microscopic WBC 3 /HPF (0-5) Urine Squamous Epithelial Cells Mod /hpf (<5) Urine Bacteria Few /hpf (None Seen) Urine Mucus Few (None Seen) Urine Glucose Normal mg/dL (Normal) Urine Test Negative (Negative) Other Laboratory Tests 03/05/25 06:56 03/02/25 05:08 Brief Hx & Hospital Course: Final diagnoses: Right upper thigh abscess s/p surgical drainage Right upper thigh cellulitis Prior hip surgery Hyperkalemia She was treated with IV antibiotics The culture showed MRSA She needed I&D which was done successfully She improved The drain was removed today by Dr. Tamiko Lo and he cleared her for discharge DC home on Doxycycline x 7 days and [place] prn Condition at Discharge: Stable Final Diagnosis/Problems List Right upper thigh abscess s/p surgical drainage Right upper thigh cellulitis Prior hip surgery Hyperkalemia Discharge Disposition: Home SNF Discharge Will this Physician continue t: No Discharge Instruct/Medications Diet: Regular Activity: No Restrictions, As Tolerated Follow Up/Referral: PCP COMFORT Medications: Doxycycline 100 mg bid x 7 days [place] prn Scheduled Doxycycline Monohydrate (Doxycycline Monohydrate), 1 CAP PO BID Scheduled PRN Hydrocodone-Acetaminophen (Hydrocodone Bitartrate/AC 5-325 mg), 1 TAB PO Q6HP PRN Miscellaneous Medications [[id number] Mg], MG, (Reported) [Hydrocodone/Ace1 Ta8], TAB, (Reported) [[id number] Mg], MG, (Reported) Discharge Statement: "Patient was advised to return to the ER or call 911 if any headaches, dizziness, shortness of breath, chest pain, abdominal pain, bleeding, fevers, or worsening of medical condition. Patient was counseled about treatment plan, medications, possible side effects, patientverbalized understanding. All questions were answered to the best of my ability. This discharge took greater then 30 minutes in planning, reviewing documentation, counseling the patient, and discussing with other team members." ASSESSMENT ASSESSMENT Assessment Right upper thigh abscess s/p surgical drainage Right upper thigh cellulitis Prior hip surgery Hyperkalemia Date of Service: Mar 05, 2025 Billing Provider: PETER DAMON MD Common Visit Codes: [id number] DISCH DAY >30min PETER DAMON MD Mar 05, 2025 16:04
--- NOTE | 2025-03-05 18:22 | DVHPN2 ---
Progress Note Date Seen: Mar 05, 2025 Medical Necessity Reason Pt with a Central, PICC or Fol: No Objective vital signs Vital Sign Date Time Temp Pulse Resp B/P (MAP) Pulse Ox O2 Delivery O2 Flow Rate FiO2 03/05/25 17:47 98.2 88 17 98 03/05/25 17:00 159/96 (117) 03/05/25 08:00 Room Air* 0 21 Total Intake and Output 03/04/25 03/04/25 03/05/25 15:00 23:00 07:00 Intake Total 860 ml 260 ml Output Total 1500 ml 550 ml Balance -640 ml -290 ml medications Current Medications Medications Dose Ordered Sig/Tess Route Start Time Stop Time Status Last Admin Dose Admin Acetaminophen/ Hydrocodone Bitart 1 tab Q4HP PRN PO 02/28/25 10:45 03/04/25 11:48 1 TAB Ondansetron HCl 4 mg Q4HP PRN IV 02/28/25 10:45 03/04/25 19:41 4 MG Acetaminophen 650 mg Q6HP PRN PO 02/28/25 10:45 03/04/25 17:24 650 MG Morphine Sulfate 2 mg Q4HPRN PRN IV 02/28/25 10:45 03/04/25 18:48 2 MG Nitroglycerin 0.4 mg Q5MINP PRN SL 02/28/25 10:45 Morphine Sulfate 2 mg Q30M PRN IV 02/28/25 10:45 Cefepime HCl 50 ml @ 12.5 mls/hr Q8HR IV 02/28/25 22:00 03/05/25 05:03 12.5 MLS/HR Vancomycin HCl 0 ml @ 0 mls/hr UD IV 02/28/25 15:30 Diphenhydramine HCl 25 mg Q4HP PRN IV 02/28/25 21:30 03/05/25 09:21 25 MG Oxycodone HCl 5 mg ONCE PRN PO 03/03/25 11:00 03/03/25 10:54 5 MG Alprazolam 0.5 mg Q8HPRN PRN PO 03/04/25 09:45 03/04/25 19:41 0.5 MG Vancomycin HCl 250 ml @ 250 mls/hr Q12H IV 03/05/25 11:00 laboratory and microbiology Laboratory Tests 03/05/25 06:56 03/02/25 05:08 Test 03/05/25 06:56 Range/Units Serum Glucose 95 74-106 mg/dL Microbiology Date/Time Source Procedure Growth Status 03/01/25 10:23 Thigh Gram Stain - Final Complete 03/01/25 10:23 Wound Culture - Final Methicillin Resistant S.aureus Complete 02/28/25 09:14 Blood Blood Culture - Final NO GROWTH AFTER 5 DAYS OF INCUBATION. Complete Problem List/Assessment/Plan Problem List/Assessment/Plan AFEBRILE VSS R UPPER INNER THIGH WOUND HEALING DRAIN MINIMAL DC DRAIN NO COMPLICATIONS CLEARED FOR DISCHARGE INSTRUCTIONS RE DIET ACTIVITY F/UP GIVEN Plan discussed with: Patient Dietary Evaluation Review Recommendations by RD: Dietary education by RD Comments: 1) Initiate MVI @ 1 tb qd 2) Initiate vitamin C @ 500 mg bid and zinc sulfate @ 220 mg for 7 days 3) Encourage optimal PO intake 4) Refer to outpatient RD for weight management 4) Continue to monitor I&O, labs, and skin integrity Expected Outcomes/Goals: 1) appetite and labs to improve 2) wound to improve 3) f/u in 3-5 days MEHNAZ PALAFOX MD Mar 05, 2025 18:22
== END 2025-03-05 18:50 | disposition home or self-care (01) | DRG 364 ==
LOC: ER 08:29 → EEVIPCON 08:29 → OVERFLOW 10:43 → TELE-CENTR 11:51
PROVIDERS: ADMIT Internal Medicine Geriatric Medicine; ATTEND Internal Medicine Geriatric Medicine
PROC: 0J9L0ZZ Drainage of Right Upper Leg Subcutaneous Tissue and Fascia, Open Approach (ICD-10-PCS; principal; 2025-03-03 08:50)
DX: L03.115 Cellulitis of right lower limb (principal); E87.5 Hyperkalemia; L02.415 Cutaneous abscess of right lower limb; N39.0 Urinary tract infection, site not specified; F41.9 Anxiety disorder, unspecified; K21.9 Gastro-esophageal reflux disease without esophagitis; Z98.891 History of uterine scar from previous surgery; Z88.0 Allergy status to penicillin; Z98.51 Tubal ligation status; Z83.3 Family history of diabetes mellitus; Z82.5 Family history of asthma and other chronic lower respiratory diseases; Z82.62 Family history of osteoporosis; Z82.49 Family history of ischemic heart disease and other diseases of the circulatory system; Z82.3 Family history of stroke; Z82.0 Family history of epilepsy and other diseases of the nervous system; Z81.8 Family history of other mental and behavioral disorders; Z80.8 Family history of malignant neoplasm of other organs or systems; Z80.41 Family history of malignant neoplasm of ovary; Z80.3 Family history of malignant neoplasm of breast; Z80.1 Family history of malignant neoplasm of trachea, bronchus and lung; Z80.2 Family history of malignant neoplasm of other respiratory and intrathoracic organs; Z80.0 Family history of malignant neoplasm of digestive organs; Z81.1 Family history of alcohol abuse and dependence; Z82.61 Family history of arthritis; Z83.511 Family history of glaucoma; Z84.89 Family history of other specified conditions; Z83.42 Family history of familial hypercholesterolemia
CPT/HCPCS: 36415; 73700; 80048; 80053; 80202; 81001; 81025; 82565; 83605; 83735; 85025; 85610; 85652; 85730; 86141; 86850; 86900; 86901; 87040; 87077; 87081; 87186; 87205; 94640; 96361; 96365; 96375; G0378; J0131; J1885; J2003; J2250; J2405; J3480; J3490